=== PATIENT | male | born 1960 | race Caucasian/White ===

== ENCOUNTER 2018-12-10 18:20 | Observation (INO) ==
[2018-12-10] MEDS ORDERED: 0.9 % Sodium Chloride 1,000 ML IVC ONE (19:32)
[2018-12-10] MEDS ORDERED: Piperacillin/Tazobactam 3.375 GM in Water for inj. (sterile) 20 ML IVP ONE (19:34)
[2018-12-10] MEDS ORDERED: Piperacillin/Tazobactam 3.375 GM in 0.9 % Sodium Chloride Mini Bag 100 ML IVPB ONE (19:46)
[2018-12-10] MEDS ORDERED: Morphine Sulfate 2 MG/ML SYRINGE IVP ONE (19:49)
[2018-12-10 20:07] LABS: Basophils # 0.1 K/mcL (0.0-0.2); Basophils % 0.6 %; Eosinophils # 0.5 K/mcL (0.0-0.6); Eosinophils % 3.2 %; Hematocrit 46.2 % (37.5-50.1); Hemoglobin 15.8 g/dL (12.9-16.9); Immature Granulocytes % 0.4 % (0-4); Lymphocytes % 21.2 %; Mean Corpuscular HGB Conc 34.2 g/dL (31.6-35.5); Mean Corpuscular Volume 93.7 fL (83.0-100.0); Mean Platelet Volume 10.1 fL (9.4-12.4); Monocytes # 1.6 K/mcL (0.0-1.3); Monocytes % 11.7 %; Neutrophils # 8.7 K/mcL (1.6-8.9); Platelet Count 258 K/mcL (140-400); Red Blood Count 4.93 M/mcL (4.19-5.50); Red Cell Distribution Width 13.3 % (11.5-14.5); Segmented Neutrophils % 62.9 %; White Blood Count 13.9 K/mcL (4.3-11.1)
[2018-12-10 20:27] LABS: BUN/Creatinine Ratio 16 (6-26); Blood Urea Nitrogen 13 mg/dL (6-20); Calcium 8.7 mg/dL (8.6-10.3); Carbon Dioxide 28 mEq/L (23-29); Chloride 98 mEq/L (98-107); Glucose 88 mg/dL (70-105); Osmolality,Calculated 276 (280-300); Potassium 3.8 mEq/L (3.5-5.1); Sodium 133 mEq/L (136-145); eGFR For African Americans > 60 (> 60); eGFR For Non-African Americans > 60 (> 60)
[2018-12-11] MEDS ORDERED: Naloxone 0.4 MG/ML INJ IVP PRN ×2 (01:34→23:17)
[2018-12-11] MEDS: 0.9 % Sodium Chloride 1,000 ML IVC SCH ×2 (02:00→11:11)
[2018-12-11 04:18] LABS: Hematocrit 41.1 % (37.5-50.1); Mean Corpuscular HGB Conc 33.1 g/dL (31.6-35.5); Mean Corpuscular Hemoglobin 31.8 pg (28.0-33.3); Mean Platelet Volume 9.9 fL (9.4-12.4); Platelet Count 218 K/mcL (140-400); Red Blood Count 4.28 M/mcL (4.19-5.50); Red Cell Distribution Width 13.2 % (11.5-14.5); White Blood Count 10.7 K/mcL (4.3-11.1)
[2018-12-11 04:24] LABS: INR 1.1; Prothrombin Time 12.8 Seconds (9.4-12.1)
[2018-12-11 04:29] LABS: Hemoglobin 13.6 g/dL (12.9-16.9)
[2018-12-11 04:38] LABS: BUN/Creatinine Ratio 13 (6-26); Blood Urea Nitrogen 10 mg/dL (6-20); Calcium 8.3 mg/dL (8.6-10.3); Carbon Dioxide 25 mEq/L (23-29); Chloride 106 mEq/L (98-107); Glucose 107 mg/dL (70-105); Osmolality,Calculated 284 (280-300); Potassium 3.7 mEq/L (3.5-5.1); Sodium 137 mEq/L (136-145); eGFR For African Americans > 60 (> 60); eGFR For Non-African Americans > 60 (> 60)
[2018-12-11] MEDS: Piperacillin/Tazobactam 3.375 GM in 0.9 % Sodium Chloride Mini Bag 100 ML IVPB SCH ×2 (08:36→16:24)
[2018-12-11 09:09] LABS: Creatine Kinase 265 Units/L (30-223)
[2018-12-11] MEDS ORDERED: *HR* Propofol 200 MG/20 ML VIAL IVP ONE (20:24)
[2018-12-11] MEDS ORDERED: *HR* FentaNYL (PF) 100 MCG/2 ML VIAL ONE (20:24)
[2018-12-11] MEDS ORDERED: Lidocaine -MPF 1% 5 ML AMPUL ONE (20:25)
[2018-12-11] MEDS ORDERED: Ondansetron 4 MG/2 ML VIAL ONE (20:25)
[2018-12-11] MEDS ORDERED: Dexamethasone 4 MG/ML VIAL ONE (20:25)
[2018-12-11] MEDS: *HR* HYDROmorphone (PF) 1 MG/ML SYRINGE IVP PRN ×2 (22:02→22:28)
[2018-12-11] MEDS ORDERED: *HR* Labetalol 20 MG/4 ML SYRINGE IVP ONE (22:08)
[2018-12-11] MEDS: *HR* Labetalol 20 MG/4 ML SYRINGE IVP PRN ×2 (22:09→22:14)
[2018-12-12] MEDS ORDERED: Piperacillin/Tazobactam 3.375 GM in 0.9 % Sodium Chloride Mini Bag 100 ML IVPB SCH
[2018-12-12 05:08] LABS: Basophils % 0.5 %; Eosinophils % 0.1 %; Hematocrit 39.4 % (37.5-50.1); Hemoglobin 13.1 g/dL (12.9-16.9); Immature Granulocytes % 0.5 % (0-4); Lymphocytes # 0.8 K/mcL (0.6-4.6); Lymphocytes % 11.4 %; Mean Corpuscular HGB Conc 33.2 g/dL (31.6-35.5); Mean Corpuscular Hemoglobin 31.2 pg (28.0-33.3); Mean Corpuscular Volume 93.8 fL (83.0-100.0); Mean Platelet Volume 10.2 fL (9.4-12.4); Monocytes # 0.2 K/mcL (0.0-1.3); Monocytes % 3.3 %; Neutrophils # 6.2 K/mcL (1.6-8.9); Platelet Count 255 K/mcL (140-400); Red Cell Distribution Width 13.1 % (11.5-14.5); Segmented Neutrophils % 84.2 %; White Blood Count 7.4 K/mcL (4.3-11.1)
[2018-12-12 05:29] LABS: BUN/Creatinine Ratio 16 (6-26); Blood Urea Nitrogen 12 mg/dL (6-20); Calcium 8.4 mg/dL (8.6-10.3); Carbon Dioxide 26 mEq/L (23-29); Chloride 108 mEq/L (98-107); Glucose 212 mg/dL (70-105); Osmolality,Calculated 292 (280-300); Potassium 4.2 mEq/L (3.5-5.1); Sodium 138 mEq/L (136-145); eGFR For African Americans > 60 (> 60); eGFR For Non-African Americans > 60 (> 60)
[2018-12-12 07:23] VITALS: BP 142/71
[2018-12-12] MEDS ORDERED: Aminoglycoside Consult 1 EACH MC ONE (08:59)
[2018-12-12] MEDS ORDERED: *HR* Methadone 10 MG TABLET PO PRN (11:22)
[2018-12-12] MEDS ORDERED: NICOTINE IH PRN (11:22)
[2018-12-12] MEDS ORDERED: INDOMETHACIN 50 MG PO PRN (11:22)
[2018-12-12] MEDS ORDERED: NON-FORMULARY MEDICATION 1 EACH EACH (Gabapentin [Neurontin] 800 MG) PO SCH (15:00)
[2018-12-12] MEDS ORDERED: NON-FORMULARY MEDICATION 1 EACH EACH (Lisinopril 2.5 MG) PO SCH (21:00)
[2018-12-13] MEDS ORDERED: levoFLOXacin 500 MG TABLET PO SCH (09:00)
[2018-12-13] MEDS ORDERED: Aspirin Enteric Coated 81 MG Tablet PO SCH (09:00)
[2018-12-13] MEDS ORDERED: Sulfamethoxazole/Trimeth DS 1 EACH TABLET PO SCH (21:00)
== END 2018-12-12 09:00 | disposition left against medical advice (07) ==
LOC: EMEROOARM 18:20 → 3NENU 18:20 → SUATTDRO 22:12 → 3NENU 22:25
PROVIDERS: ADMIT Family Medicine; ATTEND Internal Medicine